=== PATIENT | female | born 1970 | race American Indian/Alaskan Native ===

== ENCOUNTER 2018-05-01 09:34 | Emergency (ER) | payer BC, MEDICAID, OTHER ==
[2018-05-01 09:34] VITALS: BMI 25.6
[2018-05-01 09:58] VITALS: TEMP 98.4
--- NOTE | 2018-05-01 11:41 | ED PDOC ---
Arrival/HPI - General Historian: Patient - History of Present Illness Narrative History of Present Illness (Text): 05/01/18 11:37 47 year old female presents today with a 3 week history of right-sided neck pain and right shoulder pain. Patient states the pain started 3 weeks ago when she woke up from sleep. Patient states the pain is achy and radiates into the right arm. She denies numbness weakness or tingling in the extremity. She denies any trauma or injury. Patient states she's been taking Motrin and Valium with some improvement. Patient states that the soreness in the right side of the neck and shoulder has improved but now she has a shooting pain going into the right arm from the neck to the elbow. Patient denies fevers or chills. Denies headaches dizziness or weakness. Patient denies chest pain or shortness of breath. No abdominal pain. No other complaints <Marybeth Vivas - Last Filed: 05/01/18 14:40> <José Miguel Arzate - Last Filed: 05/01/18 17:25> - General Chief Complaint: Back Pain Time Seen by Provider: 05/01/18 10:40 Past Medical History - Provider Review Nursing Documentation Reviewed: Yes - Travel History Have you recently traveled outside [place] w/in the past 3 mons?: No - Infectious Disease Hx of Infectious Diseases: None - Cardiac Hx Cardiac Disorders: No - Pulmonary Hx Respiratory Disorders: No - Neurological Hx Neurological Disorder: No - HEENT Hx HEENT Disorder: No - Renal Hx Renal Disorder: No - Endocrine/Metabolic Hx Endocrine Disorders: No - Hematological/Oncological Hx Blood Disorders: No - Integumentary Hx Dermatological Disorder: Yes Other/Comment: ABSCESS - Musculoskeletal/Rheumatological Hx Musculoskeletal Disorders: Yes Hx Back Pain: Yes - Gastrointestinal Hx Gastrointestinal Disorders: Yes Hx Gastritis: Yes - Genitourinary/Gynecological Hx Genitourinary Disorders: Yes Other/Comment: UTERINE FIBROIDS - Psychiatric Hx Anxiety: Yes Hx Substance Use: No - Surgical History Hx Tonsillectomy: Yes Other/Comment: FIBROIDS - Suicidal Assessment Feels Threatened In Home Enviroment: No <Marybeth Vivas - Last Filed: 05/01/18 14:40> Family/Social History - Physician Review Nursing Documentation Reviewed: Yes Family/Social History: Unknown Family HX Smoking Status: Light Smoker < 10 Cigarettes Daily Hx Alcohol Use: Yes Hx Substance Use: No Hx Substance Use Treatment: No <Marybeth Vivas Ladan - Last Filed: 05/01/18 14:40> Allergies/Home Meds <Samy Vivascornelia Pickering - Last Filed: 05/01/18 14:40> <José Miguel Arzate - Last Filed: 05/01/18 17:25> Allergies/Adverse Reactions: Allergies acetaminophen [From Percocet] Allergy (Verified 05/01/18 09:52) RASH oxycodone [From Percocet] Allergy (Verified 05/01/18 09:52) RASH shellfish derived Allergy (Verified 05/01/18 09:52) SWELLING Home Medications: Home Meds Medication Instructions Recorded Confirmed RX: Omeprazole 20 mg PO DAILY 09/06/14 05/01/18 Ondansetron [Zofran Tab] 4 mg PO Q6 PRN 05/01/18 05/01/18 RX: Cephalexin [Keflex] 500 mg PO QID 05/01/18 05/01/18 Review of Systems - Review of Systems Constitutional: absent: Fatigue, Fevers Respiratory: absent: SOB, Cough Cardiovascular: absent: Chest Pain, Palpitations Gastrointestinal: absent: Abdominal Pain, Nausea, Vomiting Genitourinary Female: absent: Dysuria, Frequency, Hematuria Musculoskeletal: Arthralgias, Neck Pain Skin: absent: Rash, Pruritis Neurological: absent: Headache, Dizziness Psychiatric: absent: Anxiety, Depression <Marybeth Vivas Ladan - Last Filed: 05/01/18 14:40> Physical Exam Vital Signs Reviewed: Yes Vital Signs Temp Pulse Resp BP Pulse Ox 05/01/18 09:54 98.4 F 90 17 112/76 98 Temperature: Afebrile Blood Pressure: Normal Pulse: Regular Respiratory Rate: Normal Appearance: Positive for: Well-Appearing, Non-Toxic, Comfortable Pain Distress: None Mental Status: Positive for: Alert and Oriented X 3 - Systems Exam Head: Present: Atraumatic Mouth: Present: Moist Mucous Membranes Neck: Present: Normal Range of Motion, Paraspinal Tenderness (Right sided paraspinal tenderness), Trachea Midline, Other (Right sided trapezius tenderness). No: MIDLINE TENDERNESS Respiratory/Chest: Present: Clear to Auscultation, Good Air Exchange. No: Respiratory Distress, Accessory Muscle Use Cardiovascular: Present: Regular Rate and Rhythm Upper Extremity: Present: Normal ROM, NORMAL PULSES, Tenderness (Tenderness noted over the posterior aspect of the right shoulder no edema and no erythema and no ecchymosis.), Capillary Refill < 2s, Other (Sensation and distal pulses intact. Cap refill less than 2. Muscle strength is equal 5 out of 5 bilaterally.). No: Temperature Abnormalties, Deformity Neurological: Present: GCS=15 Skin: Present: Warm, Dry, Normal Color. No: Rashes Psychiatric: Present: Alert, Oriented x 3 <Marybeth Vivas - Last Filed: 05/01/18 14:40> Vital Signs Temp Pulse Resp BP Pulse Ox 05/01/18 09:54 98.4 F 90 17 112/76 98 <José Miguel Arzate - Last Filed: 05/01/18 17:25> Medical Decision Making ED Course and Treatment: 05/01/18 11:40 Patient nontoxic well-appearing in no distress with stable vital signs. Toradol and Flexeril X-rays of the cervical spine: no fracture X-rays of the right shoulder: no fracture Patient reassessment: Feeling better with medications. Patient most likely with musculoskeletal neck pain versus cervical radiculopathy. I advised to followup with the orthopedist within the next 2 days. Return if symptoms worsen persist or new symptoms develop Patient verbalizes understanding of discharge instructions and need for immediate followup. Impression: neck pain Motrin every 6 hours as needed for pain Flexeril one tablet every 8 hours as needed for muscle spasms: May cause drowsiness Followup with the orthopedist within the next 2 days Followup with primary care physician within the next 2 days Return if symptoms worsen persist or if new symptoms develop Reassessment Condition: Re-examined, Improved - RAD Interpretation Radiology Orders: 05/01/18 10:41 CERVICAL SPINE >18YR W/OBLIQUE [RAD] Stat SHOULDER RIGHT [RAD] Stat - Medication Orders Current Medication Orders: Discontinued Medications Cyclobenzaprine HCl (Flexeril) 10 mg PO STAT STA Stop: 05/01/18 10:42 Last Admin: 05/01/18 11:18 Dose: 10 mg Ketorolac Tromethamine (Toradol) 60 mg IM STAT STA Stop: 05/01/18 10:42 Last Admin: 05/01/18 11:18 Dose: 60 mg MAR Pain Assessment Document 05/01/18 11:18 HI (Rec: 05/01/18 11:18 HI [id number]) Pain Reassessment Is this a pain reassessment? No Sleep Is patient sleeping during reassessment? No Presence of Pain Presence of Pain Yes Pain Scale Used Protocol: [facility] Pain Scale Used Numeric Location Left, Right or Bilateral Right Pain Location Body Site Neck IM Administration Charges Document 05/01/18 11:18 HI (Rec: 05/01/18 11:18 HI [id number]) Injection Site MAR Injection Site Left Gluteus Carlitos Charges for Administration # of IM Administrations 1 <Marybeth Vivas T - Last Filed: 05/01/18 14:40> - RAD Interpretation Radiology Orders: 05/01/18 10:41 CERVICAL SPINE >18YR W/OBLIQUE [RAD] Stat SHOULDER RIGHT [RAD] Stat - Medication Orders Current Medication Orders: Discontinued Medications Cyclobenzaprine HCl (Flexeril) 10 mg PO STAT STA Stop: 05/01/18 10:42 Last Admin: 05/01/18 11:18 Dose: 10 mg Ketorolac Tromethamine (Toradol) 60 mg IM STAT STA Stop: 05/01/18 10:42 Last Admin: 05/01/18 11:18 Dose: 60 mg MAR Pain Assessment Document 05/01/18 11:18 HI (Rec: 05/01/18 11:18 HI [id number]) Pain Reassessment Is this a pain reassessment? No Sleep Is patient sleeping during reassessment? No Presence of Pain Presence of Pain Yes Pain Scale Used Protocol: 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 <José Miguel Arzate - Last Filed: 05/01/18 17:25> Disposition/Present on Arrival - Present on Arrival Any Indicators Present on Arrival: No History of DVT/PE: No History of Uncontrolled Diabetes: No Urinary Catheter: No History of Decub. Ulcer: No History Surgical Site Infection Following: None - Disposition Have Diagnosis and Disposition been Completed?: Yes Disposition Time: 11:41 Patient Plan: Discharge <Marybeth Vivas - Last Filed: 05/01/18 14:40> <José Miguel Arzate - Last Filed: 05/01/18 17:25> - Disposition Diagnosis: Neck pain Disposition: HOME/ ROUTINE Patient Problems: Current Active Problems Problem Status Onset Neck pain Acute Condition: GOOD Discharge Instructions (ExitCare): Neck Pain Additional Instructions: Motrin every 6 hours as needed for pain Flexeril one tablet every 8 hours as needed for muscle spasms: May cause dr [place] Followup with the orthopedist within the next 2 days Followup with primary care physician within the next 2 days Return if symptoms worsen persist or if new symptoms develop Prescriptions: Cyclobenzaprine [Cyclobenzaprine HCl] 10 mg PO Q8 #10 tab Ibuprofen [Motrin] 600 mg PO Q6H PRN #20 tab PRN Reason: pain/fever reduction Referrals: Bradley Clemente MD [Staff Provider] - Follow up with primary Oneyda Oneal MD [Staff Provider] - Follow up with primary Sarah Persaud MD [Medical Doctor] - Follow up with primary [facility] [Outside] - Follow up with primary Forms: [employer] (Japanese)
--- NOTE | 2018-05-01 11:57 | RAD ---
Date of service: 05/01/2018 PROCEDURE: Radiographs of the Right Shoulder HISTORY: neck pain, shoulder pain COMPARISON: No prior. FINDINGS: BONES: Normal. No fracture. JOINTS: Normal. Glenohumeral and acromioclavicular joints preserved. No osteoarthritis. SOFT TISSUES: Normal. OTHER FINDINGS: None. IMPRESSION: Normal radiographs of the right shoulder.
--- NOTE | 2018-05-01 11:58 | RAD ---
Date of service: 05/01/2018 PROCEDURE: Cervical Spine Radiographs. HISTORY: Pain. COMPARISON: None. FINDINGS: BONES: Alignment maintained. No fracture. Dens Intact. DISC SPACES: Normal. SOFT TISSUES: Normal. No prevertebral soft tissue swelling. OTHER FINDINGS: None. IMPRESSION: Normal cervical spine radiographs
[2018-05-01 20:21] VITALS: BP 124/70; PULSE 82; RESP 18; O2SAT 99
== END 2018-05-01 12:00 | disposition home or self-care (01) ==
LOC: ED 09:34
DX: M54.2 Cervicalgia (principal); F17.210 Nicotine dependence, cigarettes, uncomplicated
CPT/HCPCS: 72050; 73030; 96372; 99283; J1885